=== PATIENT | male | born 1955 | race Caucasian/White ===

== ENCOUNTER 2018-04-20 11:02 | Day surgery (SDC) | payer OTHER ==
[2018-04-19 14:06] VITALS: BMI 25.0
[2018-04-20] MEDS ORDERED: PROPOFOL 20 ML ONE ×2 (14:31→14:54)
[2018-04-20] MEDS ORDERED: MIDAZOLAM HCL 2 MG/2 ML SINGLE DOSE VIAL ONE (14:31)
[2018-04-20] MEDS ORDERED: ceFAZolin SODIUM 1 GM VIAL ONE (15:00)
[2018-04-20] MEDS ORDERED: BUPIVACAINE HCL 0.25% 125 MG/50 ML VIAL ONE (15:09)
[2018-04-20] MEDS ORDERED: oxyCODONE HCL 5 MG TABLET PO PRN (15:11)
[2018-04-20] MEDS ORDERED: ONDANSETRON 4 MG/2 ML VIAL IVPUSH PRN (15:11)
[2018-04-20] MEDS ORDERED: LACTATED RINGERS SOLUTION 1,000 ML IV SCH (15:15)
[2018-04-20] MEDS ORDERED: ONDANSETRON 4 MG/2 ML VIAL IVPUSH ONE (16:12)
[2018-04-20] MEDS ORDERED: ONDANSETRON 4 MG/2 ML VIAL ONE (16:12)
[2018-04-20] MEDS ORDERED: oxyCODONE HCL 5 MG TABLET ONE ×2 (17:15→18:01)
[2018-04-20] MEDS ORDERED: KETOROLAC TROMETHAMINE 30 MG/1 ML VIAL ONE (18:01)
[2018-04-20 18:42] VITALS: PULSE 64
[2018-04-20 18:46] VITALS: BP 155/84; TEMP 98
--- NOTE | 2018-04-20 19:06 | OP ---
DATE OF OPERATION: 04/20/2018 LOCATION: [facility]. SURGEON: Cheo Harper MD DRYING MACHINE OPERATOR: PAYAL Quick PREOPERATIVE DIAGNOSIS: Right hand infection status post trigger finger release. POSTOPERATIVE DIAGNOSIS: Right hand infection status post trigger finger release. PROCEDURE: Irrigation and debridement, right hand middle finger. FINDINGS: 1. Incision mid-palm at trigger finger release with evidence of local infection. 2. Incision made over proximal phalanx going down to tendon sheath showed no evidence of active infection. DESCRIPTION OF PROCEDURE: Informed consent was obtained. The patient came to the operating room, where the right upper extremity was prepped and draped in a sterile fashion. A tourniquet was placed on the upper arm, but not inflated. Sutures were previously removed from the trigger finger incision. This was released, and local damaged tissue along the skin and subcutaneous layer was debrided. Cultures were taken. A horizontal incision was made along the proximal phalanx. This was taken down to the tendon sheath. There was noted to be swelling of the tissue but no evidence of active infection. Cultures were taken from both sites. The wound was then irrigated with 3 L of irrigation, both on the proximal and distal wound and through the tendon sheath in between, being held up between with a curved hemostat. There was no evidence of damage to the tendons. Iodoform gauze was then placed into the proximal and distal incisions, and a 4-0 Prolene was placed around the area, keeping it open but not extending the entire length of the incision. Patient also with previous carpal tunnel release. No evidence of infection at that area. Sutures were removed, irrigated and debrided along the superficial incision since the deep portion was healed, and 3 Prolene sutures were placed there. Sterile dressing and splint were placed. The patient was transferred to recovery without complication. CHEO HARPER M.D. [id number]
== END 2018-04-20 18:35 | disposition home or self-care (01) ==
LOC: FASU 11:02
PROVIDERS: ATTEND Orthopaedic Surgery
PROC: 0LN70ZZ Release Right Hand Tendon, Open Approach (ICD-10-PCS; 2018-04-20)
PROC: 0JBJ0ZZ Excision of Right Hand Subcutaneous Tissue and Fascia, Open Approach (ICD-10-PCS; principal; 2018-04-20 15:16)
DX: T81.4XXA Infection following a procedure, initial encounter (principal); Y83.8 Other surgical procedures as the cause of abnormal reaction of the patient, or of later complication, without mention of misadventure at the time of the procedure
CPT/HCPCS: 82962; 87070; 87186; 87205; 94760